=== PATIENT | male | born 1980 | race Two or more races ===

== ENCOUNTER 2024-02-03 04:33 | Emergency (ER) | payer SELFPAY ==
[2024-02-03 04:37] VITALS: BP 129/89; PULSE 91; TEMP 37.1; O2SAT 97; BMI 48.0
--- NOTE | 2024-02-03 04:59 | ED_ITS ---
HPI - Skin/Abscess/Foreign Bdy General Chief complaint: Skin/Abscess/Foreign Body Stated complaint: RASH Time Seen by Provider: 02/03/24 04:52 Source: patient Mode of arrival: walk-in History of Present Illness HPI narrative: presents complaining of poison ANDREW. States he help someone cut down a tree 3- 4days ago. Has diffuse rash of his face, trunk and extremities. Denies dyspnea. States he has been using benadryl at home Related Data Allergies Allergy/AdvReac Type Severity Reaction Status Date / Time No Known Drug Allergies Allergy Verified 02/03/24 04:46 Review of Systems ROS Status of ROS 10 or more systems reviewed and unremark able except as noted in history and below Exam Constitutional Vital Signs, click to edit/add: Last Vital Signs Temp 98.8 F 02/03/24 04:37 Pulse 91 H 02/03/24 04:37 Resp 18 02/03/24 04:37 BP 129/89 02/03/24 04:37 Pulse Ox 97 02/03/24 04:37 O2 Del Method Room Air 02/03/24 04:37 Common normals: no apparent distress, oriented x3, alert and well nourished HENMA Common normals: normocephalic and head/scalp atraumatic Eye Common normals: EOMs intact bilaterally and conjunctivae normal Respiratory Common normals: normal respiratory effort, no retractions, no use of accessory muscles and clear to auscultation bilaterally Cardio Common normals: regular rate, regular rhythm, S1 normal heart sound and S2 normal heart sound GI Common normals: Normal to inspection, nondistended, normoactive bowel sounds present, soft to palpation and non-tender Back & Pelvis Other: diffuse erythematous rash on face, trunk and extremities. Rash is mostly confluent except on his ankles where he has linear rash Extremity Common normals: normal to inspection and full ROM Neuro Common normals: oriented x3, CN's II-XII intact bilaterally, moves all extremities and no focal motor deficits Psych Appearance: grossly normal Course Vital Signs Vital signs: Vital Signs Temperature 98.8 F 02/03/24 04:37 Pulse Rate 91 H 02/03/24 04:37 Respiratory Rate 18 02/03/24 04:37 Blood Pressure 129/89 02/03/24 04:37 Pulse Oximetry 97 02/03/24 04:37 Oxygen Delivery Method Room Air 04/26/24 04:37 Temperature 98.8 F 02/03/24 04:37 Pulse Rate 91 H 02/03/24 04:37 Respiratory Rate 18 02/03/24 04:37 Blood Pressure 129/89 02/03/24 04:37 Pulse Oximetry 97 02/03/24 04:37 Oxygen Delivery Method Room Air 02/03/24 04:37 MDM - Skin/Abscess/Foreign Bdy MDM Narrative Medical decision making narrative: patient presents with contact dermatitis. Past history of poison ANDREW. States when he has used prednisone in the past he experienced anxiety. Advised plan to use prednisone but he is also advised to use Benadryl simultaneously and this may help to block some of the anxiety Discharge Plan Discharge Stand Alone Forms: Portal Instructions Chief Complaint: Skin/Abscess/Foreign Body Clinical Impression: Contact dermatitis Patient Disposition: Home, Self-Care Print Language: Montserratian Instructions: Contact Dermatitis (ED) Additional Instructions: follow up with your Doctor next week or with Dr Hernandez Referrals: Physician,Non-Staff, MD [Primary Care Provider] - 1 week
[2024-02-03] MEDS: METHYLPREDNISOLONE SOD SUCC PF 125 MG/2 ML VIAL IM (05:13)
== END 2024-02-03 05:25 | disposition home or self-care (01) ==
PROVIDERS: Emergency Provider Internal Medicine
DX: L25.9 Unspecified contact dermatitis, unspecified cause (principal)
CPT/HCPCS: 96372; 99284; J2919